=== PATIENT | male | born 1985 | race Two or more races ===

== ENCOUNTER 2020-07-27 18:59 | Emergency (ER) | payer SELFPAY ==
[2020-07-27] MEDS ORDERED: Acetaminophen 500 MG TAB ONE (19:22)
[2020-07-27] MEDS ORDERED: Ibuprofen 800 MG TAB ONE (19:22)
--- NOTE | 2020-07-27 19:49 | RAD ---
Exam:Left foot 3 HISTORY: Retropharyngeal today. Ankle injury 2 weeks ago. COMPARISON: None FINDINGS: Mild lateral soft tissue swelling. No fracture, cortical irregularity or periosteal reactio n. There is soft tissue swelling in the hindfoot. IMPRESSION: Soft tissue swelling without fracture.
== END 2020-07-27 20:30 | disposition home or self-care (01) ==
LOC: ERS 18:59
DX: S93.402A Sprain of unspecified ligament of left ankle, initial encounter (principal); X50.9XXA Other and unspecified overexertion or strenuous movements or postures, initial encounter; Y93.67 Activity, basketball

== ENCOUNTER 2020-09-21 14:47 | Emergency (ER) | payer SELFPAY | END 2020-09-21 15:36 | disposition home or self-care (01) | LOC: ERS 14:47 | DX: F43.9 Reaction to severe stress, unspecified (principal); F31.9 Bipolar disorder, unspecified; F17.210 Nicotine dependence, cigarettes, uncomplicated | CPT/HCPCS: 99283 ==